=== PATIENT | male | born 1985 | race Two or more races ===

== ENCOUNTER 2017-10-04 08:05 | Emergency (ER) | payer SELFPAY ==
[2017-10-04] MEDS ORDERED: TDAP ADULT 0.5 ML INJ (BOOSTRIX) IM ONE (08:25)
[2017-10-04 08:28] VITALS: BP 122/80
--- NOTE | 2017-10-04 08:52 | EDPHY ---
H & P Time Seen by Provider: 10/04/17 08:14 HPI/ROS: This patient presents with left hand laceration. The incident occurred 5 days ago while he was unloading a truck from a sharp metal edge of an object. He reports mild pain initially in bleeding. 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 Patient denies any other complaints. He is Mong[place]ian-speaking only with translation provided by his friend that accompanies him today. ROS: Constitutional: No fevers or chills Neuro: No numbness or tingling. Musculoskeletal: No bony pain or other injuries from the incident 5 point ROS is otherwise negative. Past Medical/Surgical History: This patient feels that his last tetanus was more than 5 years ago. He is otherwise healthy Smoking Status: Never smoked Physical Exam: Physical Exam Vital signs are normal. General: Pleasant male No acute distress Lungs: No respiratory distress. Cardiac: Brisk capillary refill is intact throughout. Skin: No rash or pallor. Extremities: Atraumatic normal except for left hand. Left hand: Patient has a 1.5 cm full-thickness laceration to the dorsum of the left hand overlying the proximal phalanx of the thumb with subcutaneous tissue evident. No foreign bodies present. The wound is gaping open by to 3 mm. No active bleeding. No deeper structures are injured. Neuro: Alert with no sensorimotor deficits in the affected extremity. Constitutional: Initial Vital Signs Temperature (C) 36.4 C 10/04/17 08:08 Heart Rate 60 10/04/17 08:08 Respiratory Rate 14 10/04/17 08:08 Blood Pressure 122/80 H 10/04/17 08:08 O2 Sat (%) 96 10/04/17 08:08 O2 Delivery Mode Room Air Allergies/Adverse Reactions: No Known Allergies Allergy (Unverified 10/04/17 08:13) Home Medications: Medication Instructions Recorded NK [No Known Home Meds] 10/04/17 MDM/Departure - MDM Procedures: The wound is 1.5 cm, full-thickness, described physical exam. The wound was scrubbed with baby shampoo and water followed by chlorhexidine scrub by myself. The wound was explored for foreign bodies and none were found. The wound was prepped and draped in the normal sterile fashion. The wound was anesthetized using a 50 50 mix of 1% plain lidocaine and 0.5% Marcaine-total of 5 mL in 27 gauge needle with good effect.. The wound was revised with a 11. Scalpel all removing scab from the margin of the wound to establish fresh wound margins with mild active bleeding. The edges were reapproximated using 4 0 Prolene on a P3 needle -7 running sutures with good hemostasis and cosmesis. The patient tolerated the procedure well. There were no complications. Medications Given: Discontinued Medications Diphtheria/Tetanus/Acell Pertussis (Boostrix) 0.5 ml IM .ONCE ONE Stop: 10/04/17 08:26 Last Admin: 10/04/17 08:53 Dose: 0.5 ml ED Course/Re-evaluation: Tetanus booster IM Discussion: Delayed closure of hand wound justified in this case by the location of open wound in this worker who is at risk for infection other complications without open wounds hand. Encouraged him to present for evaluation sooner in future wounds. - Depart Disposition: Home, Routine, Self-Care Clinical Impression: Laceration of hand Qualifiers: Encounter type: initial encounter Foreign body presence: without foreign body Laterality: left Qualified Code(s): S61.412A - Laceration without foreign body of left hand, initial encounter Condition: Good Instructions: Care For Your Stitches (ED) Additional Instructions: Diagnosis: Hand laceration Plan: Keep the wound clean and dry for the next 1& 1/2 to 2 days then clean daily with warm soapy water Tylenol or ibuprofen for pain if needed Return for suture removal in 10-12 days. Return sooner if you develops redness, discharge or other concerns for infection. Referrals: NONE *PRIMARY CARE P,. [Primary Care Provider] - As per Instructions
== END 2017-10-04 08:55 | disposition home or self-care (01) ==
LOC: CED 08:05
PROC: 0HQGXZZ Repair Left Hand Skin, External Approach (ICD-10-PCS; principal; 2017-10-04)
DX: S61.412A Laceration without foreign body of left hand, initial encounter (principal); Z23 Encounter for immunization; W26.8XXA Contact with other sharp object(s), not elsewhere classified, initial encounter; Y92.69 Other specified industrial and construction area as the place of occurrence of the external cause; Y99.0 Civilian activity done for income or pay; Y93.89 Activity, other specified